=== PATIENT | male | born 1935 | race Caucasian/White ===

== ENCOUNTER 2020-06-29 15:46 | Emergency (ER) | payer OTHER ==
[~2020-06-29] VITALS: Ht 182.9 cm; Wt 66.7 kg
[~2020-06-29 15:46] MED LIST: TYLENOL325 MG PO
[2020-06-29 16:40] LABS: ABSOLUTE NEUTROPHILS 4.6 thou/uL (1.4-8.2); BASOPHILS 0.2 % (0.0-2.0); EOSINOPHILS 0.6 % (0.0-3.0); HEMATOCRIT 46.7 % (42.0-52.0); HEMOGLOBIN 14.9 gm/dL (14.0-18.0); MCH 31.1 pg (26.0-34.0); MCV 97.2 fL (80.0-100.0); MONOCYTES 4.4 % (1.0-8.0); PLATELET COUNT 155 thou/uL (150-400); POLYS 74.8 % (36.0-66.0); RBC 4.81 mil/uL (4.50-6.00); RDW 14.7 % (10.5-14.5); WBC 6.2 thou/uL (4.0-11.0)
[2020-06-29 16:47] LABS: BE(vivo) -0.5 mmol/L (-2 to +3); HCO3 23.2 mmol/L (22.0-26.0); PCO2 35.5 mmHg (35.0-45.0); PO2 91.2 mmHg (80.0-100.0); pH 7.433 (7.360-7.450); sO2 97.2 % (92.0-98.0)
[2020-06-29 17:01] LABS: CALCIUM 9.5 mg/dL (8.5-10.1); POTASSIUM 3.6 mmol/L (3.5-5.1)
[2020-06-29 17:33] VITALS: BP 139/79
--- NOTE | 2020-06-30 07:14 | EKG ---
[place] [address] [employer] [place] [address] ELECTROCARDIOGRAM REPORT Name: EMILYNAZIA JR Room #: [facility] [id number] Admission: 06/29/20 Attend Phys: Discharge: 06/29/20 Date of : 37 Report #: [id number] [facility] ED Test Date: 2020-06-29 Test Time: 17:04:06 Pat Name: NAZIA DIAZ Department: Room: Gender: M Target Man: HUAN : 1935 Requested By: Braulio Chavez Order Number: [id number] MD: Arnel Weber Measurements Intervals [place] Rate: 88 P: 76 NE: 163 QRS: 109 QRSD: 110 T: -39 QT: 391 QTc: 473 Interpretive Statements Sinus rhythm Atrial premature complex Low voltage, extremity leads Consider RVH w/ secondary repol abnormality Compared to ECG 10/17/2014 09:59:17 Low QRS voltage now present Incomplete right bundle-branch block no longer present Electronically Signed On 06-30-2020 7:14:25 [employer] by Arnel Weber [email or web address] <ELECTRONICALLY SIGNED> By: Arnel Weber MD, [facility] 06/30/20 0714 1704 170 Arnel Weber MD, [facility] /EPI
== END 2020-06-29 17:35 | disposition home or self-care (01) ==
LOC: ER 15:46
PROVIDERS: Nurse Practitioner
DX: Z71.1 Person with feared health complaint in whom no diagnosis is made (principal); Z86.2 Personal history of diseases of the blood and blood-forming organs and certain disorders involving the immune mechanism

== ENCOUNTER 2020-10-22 16:03 | Emergency (ER) | payer OTHER ==
[~2020-10-22] VITALS: Ht 182.9 cm; Wt 66.7 kg
[2020-10-22 18:07] VITALS: BP 106/67
== END 2020-10-22 18:09 | disposition home or self-care (01) ==
LOC: ER 16:03
DX: S00.83XA Contusion of other part of head, initial encounter (principal); F84.0 Autistic disorder; Z98.890 Other specified postprocedural states; W01.0XXA Fall on same level from slipping, tripping and stumbling without subsequent striking against object, initial encounter; Y93.E1 Activity, personal bathing and showering; Y92.091 Bathroom in other non-institutional residence as the place of occurrence of the external cause; Y99.9 Unspecified external cause status